=== PATIENT | female | born 1965 | race Caucasian/White ===

== ENCOUNTER 2017-07-06 19:51 | Emergency (ER) | payer BC ==
[~2017-07-06] VITALS: Ht 157.5 cm; Wt 70.8 kg
[~2017-07-06 19:51] MED LIST: IBUP800T23 PO; METH750T2 PO
[2017-07-06 20:01] VITALS: BP 127/76; PULSE 76; RESP 18; TEMP 98.2; O2SAT 98
[2017-07-06] MEDS ORDERED: ORPHENADRINE INJ 60 MG/2 ML AMP IM ONE (21:00)
[2017-07-06] MEDS ORDERED: KETOROLAC TROMETHAMINE 60 MG/2 ML (IM) VIAL IM ONE (21:00)
--- NOTE | 2017-07-06 21:10 | PD ---
HPI . Lower back pain Chief Complaint: Musculoskeletal Complaint Time Seen by Provider: 20:37 Travel History International Travel<30 days: No Contact w/Intl Traveler<30days: No Traveled to known affect area: No History of Present Illness HPI 51-year-old female presents emergency department for evaluation of lower back pain and hip pain that radiates down both legs. Patient denies any injuries, falls, trauma suicide. Patient has a history of lower back pain. Patient denies any fevers, chills, shortness of breath, chest pain. Patient is ambulatory without a limp. There is no signs of trauma to the lower back or legs such as obvious deformity, erythema, ecchymosis, edema. Both lower legs are neurovascularly intact. Patient denies any incontinence of urine or stool. Patient states the pain is worse with movement and better when resting. PFSH Past Medical History Medical History: Denies Significant Hx Tetanus Vaccination: > 5 Years Influenza Vaccination: Yes ?: Not Tubal Ligation: Yes Past Surgical History Hysterectomy: Yes (partial, 2007) Other Surgery: Yes (JAW) Social History Alcohol Use: Yes (OCC) Tobacco Use: No Substance Use: No Allergies-Medications (Allergen,Severity, Reaction): Coded Allergies: bee venom protein (honey bee) (Unverified Allergy, Severe, NAUSEA, ) Reported Meds & Prescriptions Reported Meds & Active Scripts Active No Active Prescriptions or Reported Medications Review of Systems Except as stated in HPI: all other systems reviewed are Neg Physical Exam Narrative GENERAL: Well-nourished, well-developed 51-year-old female patient in no acute distress. Nontoxic appearing. SKIN: Focused skin assessment warm/dry. HEAD: Normocephalic. Atraumatic. EYES: No scleral icterus. No injection or drainage. NECK: Supple, trachea midline. No JVD or lymphadenopathy. CARDIOVASCULAR: Regular rate and rhythm without murmurs, gallops, or rubs. RESPIRATORY: Breath sounds equal bilaterally. No accessory muscle use. GASTROINTESTINAL: Abdomen soft, non-tender, nondistended. MUSCULOSKELETAL: Full range of motion noted to both lower extremities. No obvious deformities, ecchymosis, erythema or edema. BACK: No midline tenderness. No obvious deformity, ecchymosis, erythema or edema. No CVA tenderness. Data Data Last Documented VS Vital Signs Date Time Temp Pulse Resp B/P (MAP) Pulse Ox O2 Delivery O2 Flow Rate FiO2 07/06/17 20:01 98.2 76 18 127/76 (93) 98 Orders Orders Ketorolac Inj (Toradol Inj) (07/06/17 21:00) Orphenadrine Inj (Norflex Inj) (07/06/17 21:00) Ed Discharge Order (07/06/17 21:10) [facility] Medical Decision Making Medical Screen Exam Complete: Yes Emergency Medical Condition: Yes Differential Diagnosis Differential diagnoses include but not limited to muscle strain, muscle strain, contusion, sciatica Narrative Course 51-year-old female presents emergency department for evaluation of lower back pain. Patient has a history of lower back pain. Patient states the pain originates in both the right and left lateral aspect of the back and hips and shoots down both legs. Patient denies any injury, falls or trauma to the area. There is no signs of trauma such as ecchymosis, erythema, edema. Patient has no incontinence of urine or stool and denies any saddle numbness. Patient is not an IV drug user. Due to the fact that there is no mechanism of injury, the pain is not midline, recent surgeries or trauma the risk factors for cauda equina are exceedingly low. She will be given an IM injection of Toradol and Norflex and discharged home with instructions to follow-up with her primary care and consider physical therapy at the back pain persists. Diagnosis Primary Impression: Back pain Qualified Codes: M54.5 - Low back pain; G89.29 - Other chronic pain Referrals: Primary Care Physician Patient Instructions: Back Pain (ED), General Instructions Additional Instructions: Please return to emergency department if your symptoms return or worsen. Follow up with your primary care provider. May use [id number] ibuprofen as needed for pain and swelling. May use ice and heating pad as needed for pain management. Scripts No Active Prescriptions or Reported Meds Disposition: DISCHARGE HOME Condition: Stable MerryYanira Radha GALVEZ Jul 06, 2017 21:10
== END 2017-07-06 21:15 | disposition home or self-care (01) ==
LOC: PHEFT 19:51
DX: M54.5 Low back pain (principal); M25.552 Pain in left hip; M25.551 Pain in right hip
CPT/HCPCS: 96372; 99284; J1885; J2360